=== PATIENT | female | born 1995 | race African-American/Black ===

== ENCOUNTER 2021-02-14 12:23 | Emergency (ER) | payer SELFPAY ==
[~2021-02-14] VITALS: Ht 162.6 cm; Wt 130.0 kg
--- NOTE | 2021-02-14 13:03 | PHYS DOC ---
General Adult EDM: Chief Complaint: LOWER EXT PAIN HPI: HPI: Patient is a 25 year old female who presents to the ED today complaining of mild intermittent right lateral ankle pain that began around noon today after she slipped on a wet floor at [employer] and fell. Patient describes the pain as sharp and shooting. Denies anything specifically relieving the pain but states range of motion exacerbates the pain. Review of Systems: Review of Systems: Constitutional: Denies fever or chills. [] Musculoskeletal: Reports right ankle pain. Denies back pain Integument: Denies rash. [] Neurologic: Denies headache, focal weakness or sensory changes. [] Psychiatric: Denies depression or anxiety. [] Heart Score: C/O Chest Pain: N/A Risk Factors: Risk Factors: DM, Current or recent (<one month) smoker, HTN, HLP, family history of CAD, obesity. Risk Scores: Score 0 - 3: 2.5% MACE over next 6 weeks - Discharge Home Score 4 - 6: 20.3% MACE over next 6 weeks - Admit for Clinical Observation Score 7 - 10: 72.7% MACE over next 6 weeks - Early Invasive Strategies Physical Exam: PE: Constitutional: Well developed, well nourished, no acute distress, non-toxic appearance. [] Skin: Warm, dry, no erythema, no rash. [] Back: No tenderness, no CVA tenderness. [] Extremities: Right ankle with no obvious deformity, no bruising, no ecchymosis, soft tissue swelling noted, tenderness on palpation of the right lateral ankle. Full range of motion to the right ankle and foot. +2 right pedal pulse. Cap refill less than 2 seconds to right toes. Sensation intact to the right lower extremity Neurologic: Alert and oriented X 3, normal motor function, normal sensory function, no focal deficits noted. [] Psychologic: Affect normal, judgement normal, mood normal. [] EKG: EKG: [] Radiology/Procedures: Radiology/Procedures: []PROCEDURE: ANKLE RIGHT 3V Exam Date: 02/14/2021 12:49 PM XR EXAM OF ANKLE_RIGHT 3VIEWS Indication: Reason: pain / Spl. Instructions: / History: FINDINGS/ IMPRESSION: Ankle mortise is intact. There may be mild soft tissue swelling medially. No acute fracture or dislocation. Alignment and joint spaces are maintained. Electronically signed by: Tamara Brian MD (02/14/2021 1:14 PM) [id number] DICTATED and SIGNED BY: TAMARA BRIAN MD DATE: 02/14/21 [id number] 0 Course & Med Decision Making: Course & Med Decision Making Pertinent Labs and Imaging studies reviewed. (See chart for details) This is a 25-year-old female patient presented to the ED today with right ankle pain that began after she fell. Right ankle x-rays interpreted by radiologist were negative for any acute findings, Aircast applied to the right ankle by the live truck technician, neurovascular exam is intact. Ice elevation encouraged. Follow-up with Ortho in 1 week if pain persist Dragon Disclaimer: Dragon Disclaimer: This electronic medical record was generated, in whole or in part, using a voice recognition dictation system. Departure Departure Impression: Primary Impression: Fall from standing Qualified Codes: W19.XXXA - Unspecified fall, initial encounter Additional Impression: Right ankle sprain Qualified Codes: S93.401A - Sprain of unspecified ligament of right ankle, initial encounter Disposition: 01 HOME / SELF CARE / HOMELESS Condition: STABLE Referrals: DRAKE MARLOW MD follow up in 1-2 weeks if pain Patient Instructions: Ankle Sprain, [id number] Additional Instructions: You were seen in the emergency room for right ankle pain, right ankle x-rays were negative for any acute findings. You were provided an Aircast, wear it as tolerated. Try to ice and elevate the extremity. Take [id number] pain relievers especially anti-inflammatories as needed for pain. You can follow-up with your own doctor or the provided orthopedic doctor in 1 week if pain continues SALLY HOLLIS APRN Feb 14, 2021 12:48
--- NOTE | 2021-02-14 13:16 | RAD ---
Exam Date: 02/14/2021 12:49 PM XR EXAM OF ANKLE_RIGHT 3VIEWS Indication: Reason: pain / Spl. Instructions: / History: FINDINGS/ IMPRESSION: Ankle mortise is intact. There may be mild soft tissue swelling medially. No acute fracture or dislocation. Alignment and joint spaces are maintained. Electronically signed by: Scar Brian MD (02/14/2021 1:14 PM) [id number]
[2021-02-14 14:37] VITALS: BP 137/71
== END 2021-02-14 14:37 | disposition home or self-care (01) ==
LOC: ER 12:23
DX: S93.401A Sprain of unspecified ligament of right ankle, initial encounter (principal); W18.39XA Other fall on same level, initial encounter; Y93.89 Activity, other specified; Y92.89 Other specified places as the place of occurrence of the external cause; Y99.8 Other external cause status
CPT/HCPCS: 29515; 73610; 99283

== ENCOUNTER 2021-05-11 19:43 | Emergency (ER) | payer OTHER ==
[~2021-05-11] VITALS: Ht 160 cm; Wt 109.1 kg
[2021-05-11 19:59] VITALS: BP 147/83
== END 2021-05-11 21:09 | disposition left against medical advice (07) ==
LOC: ER 19:43
DX: R10.30 Lower abdominal pain, unspecified (principal); R35.0 Frequency of micturition; R11.0 Nausea; Z53.21 Procedure and treatment not carried out due to patient leaving prior to being seen by health care provider

== ENCOUNTER 2021-05-15 19:33 | Emergency (ER) | payer OTHER ==
[2021-05-15 19:38] VITALS: BP 147/87
== END 2021-05-15 20:24 | disposition left against medical advice (07) ==
LOC: ER 19:33
DX: R10.9 Unspecified abdominal pain (principal); Z53.21 Procedure and treatment not carried out due to patient leaving prior to being seen by health care provider